=== PATIENT | female | born 1940 | race Caucasian/White ===

== ENCOUNTER 2017-02-18 16:07 | Inpatient (IN) | payer MEDICARE, BC ==
[~2017-02-18] VITALS: Ht 160 cm; Wt 112.5 kg
--- NOTE | 2017-02-18 16:20 | NUR ---
PT LOI FROM HOME TO ER BED 10 BEEN C/O DIZZINESS, DOUBLE VISION FOR 3-5 DAYS. GOWNED AND PLACED ON MONITOR. 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 PT DENIES PAIN. AWAITING MD LARA.
--- NOTE | 2017-02-18 16:30 | NUR ---
DR RUIZ AT BEDSIDE FOR EVAL.
--- NOTE | 2017-02-18 16:47 | NUR ---
IV LINE STARTED. BLOOD DRAWN AND SENT TO LAB.
[2017-02-18 16:56] LABS: BASOPHILS # (AUTO) 0.3 /CMM (0.0-0.2); BASOPHILS % (AUTO) 3.4 % (0.0-2.0); EOSINOPHILS # (AUTO) 0.6 /CMM (0.0-0.7); EOSINOPHILS % (AUTO) 7.6 % (0.0-6.0); HEMATOCRIT 32 % (33-45); HEMOGLOBIN 10.2 g/dL (11.5-14.8); LYMPHOCYTES # (AUTO) 1.7 /CMM (0.8-4.8); LYMPHOCYTES % (AUTO) 19.4 % (20.0-44.0); MEAN CORPUSCULAR HEMOGLOBIN 30 PG (26.0-33.0); MEAN CORPUSCULAR HGB CONC 32 g/dl (31.0-36.0); MEAN CORPUSCULAR VOLUME 95 fL (82-100); MONOCYTES # (AUTO) 0.7 /CMM (0.1-1.30); NEUTROPHILS # (AUTO) 5.2 /CMM (1.8-8.9); NEUTROPHILS % (AUTO) 61.6 % (43.0-81.0); PLATELET COUNT (AUTO) 194 /CMM (150-450); RDW COEFFICIENT OF VARIATION 15.3 (11.5-15.0); RED BLOOD CELL COUNT(AUTO) 3.35 MIL/uL (4.0-5.2); WHITE BLOOD COUNT (AUTO) 8.6 K/uL (4.3-11.0)
[2017-02-18] MEDS ORDERED: IV NS 0.9% 1,000 ML BAG IV ONE (17:00)
--- NOTE | 2017-02-18 17:00 | NUR ---
TEXTED DR. LEBLANC FOR MRI APPROVAL.
--- NOTE | 2017-02-18 17:05 | NUR ---
PT TO RADIOLOGY FOR HEAD CT SCAN VIA [facility].
[2017-02-18 17:06] LABS: CALCIUM, SERUM 8.3 mg/dL (8.5-10.1); CARBON DIOXIDE 29 mmol/L (21-32); CHLORIDE 101 mmol/L (98-107); CREATININE 4.1 mg/dL (0.6-1.3); GLUCOSE 144 mg/dL (74-106); POTASSIUM 4.3 mmol/L (3.5-5.1); SODIUM SERUM 137 mmol/L (136-145); UREA NITROGEN, BLOOD 44 mg/dL (7-18)
[2017-02-18 17:10] LABS: INR 0.95 (0.87-1.13); PROTHROMBIN TIME 9.9 SECS (9.5-12.7)
[2017-02-18 17:14] LABS: TROPONIN I < 0.017 ng/mL (0.00-0.056)
[2017-02-18] MEDS ORDERED: ONDA4TAB5 PO (17:42)
[2017-02-18] MEDS ORDERED: GLIP2.5T3 PO (17:42)
[2017-02-18] MEDS ORDERED: GABA-534 PO (17:42)
[2017-02-18] MEDS ORDERED: LEVO100T9 PO (17:42)
[2017-02-18] MEDS ORDERED: ALPR1TAB7 PO (17:42)
[2017-02-18] MEDS ORDERED: INDO50CA PO (17:42)
[2017-02-18] MEDS ORDERED: HYDR-552 PO (17:42)
[2017-02-18] MEDS ORDERED: LISI40TA4 PO (17:42)
[2017-02-18] MEDS ORDERED: BENZ200C45 PO (17:42)
[2017-02-18] MEDS ORDERED: HYDR50TA3 PO (17:42)
--- NOTE | 2017-02-18 18:15 | NUR ---
MRI APPROVED,PLACED A CALL TO [employer] INFORMATION CLERK.
--- NOTE | 2017-02-18 18:22 | NUR ---
ETA FOR MOLDED CANDLES WICKER 7.30PM.
--- NOTE | 2017-02-18 18:50 | NUR ---
DR RUIZ ON THE PHONE WITH DR PATEL.
[2017-02-18 19:19] LABS: APPEARANCE,URINE Clear (CLEAR); BILIRUBIN,URINE Negative (NEGATIVE); BLOOD, URINE Negative Ery/uL (NEGATIVE); COLOR,URINE Yellow (YELLOW); KETONES,URINE Negative (NEGATIVE); LEUKOCYTE ESTERASE ,URINE Negative (NEGATIVE); NITRITE, URINE Negative (NEGATIVE); PH,URINE 5.5 (5.0-8.0); PROTEIN,URINE Negative (NEGATIVE); UGLUCOSE Negative (NEGATIVE); UROBILINOGEN,URINE 0.2 EU/dL (0.2)
[2017-02-18] MEDS ORDERED: Z GUARD REMEDY 2 OZ OINT TP PRN (19:30)
[2017-02-18] MEDS ORDERED: MECLIZINE HCL 12.5 MG TABLET PO PRN (19:30)
[2017-02-18] MEDS ORDERED: MAGNESIUM HYDROXIDE 30 ML UDC PO PRN (19:30)
[2017-02-18] MEDS ORDERED: ALBUTEROL HALF STRENGTH 1.25 MG/3 ML VIAL.NEB NEB PRN (19:30)
[2017-02-18] MEDS ORDERED: GABAPENTIN 300 MG CAPSULE PO SCH (19:30)
[2017-02-18] MEDS ORDERED: hydrALAZINE HCL 25 MG TABLET PO PRN (19:30)
[2017-02-18] MEDS ORDERED: MAG HYDROX/AL HYDROX/SIMETH 30 ML UDC PO PRN (19:30)
[2017-02-18] MEDS ORDERED: ALPRAZOLAM 1 MG TABLET PO PRN ×2 (19:30)
[2017-02-18] MEDS ORDERED: MORPHINE SULFATE INJ 2 MG/ML DISP.SYRIN IV PRN (19:30)
--- NOTE | 2017-02-18 19:34 | NUR ---
PT WHEELLED TO RADIOLOGY FOR BRAIN MRI VIA WHEELCHAIR.
[2017-02-18 20:00] VITALS: BP 106/53
[2017-02-18] MEDS ORDERED: LORAZEPAM INJ 2 MG/ML VIAL ONE (20:15)
--- NOTE | 2017-02-18 20:15 | NUR ---
REPORT GIVEN TO ROSALIA. PT AWAITING TRANSFER TO FLOOR.
[2017-02-18 20:30] VITALS: BP 106/53
[2017-02-18] MEDS ORDERED: LORAZEPAM INJ 2 MG/ML VIAL IV PRN (20:30)
[2017-02-18] MEDS: IV NS 0.9% 1,000 ML IV PRN (20:52)
--- NOTE | 2017-02-18 21:15 | NUR ---
RN NOTES ADMITTED 76 Y/O FEMALE AOX3 CAME FROM ER VIA WEELCHAIR. STAND AND TRANSFER HERSELF TO THE BED WITH SUPERVISION AND STANDBY ASSIST. COOPERATIVE AND VERY CONCERNED REGARDING HER HEALTH DUE TO DIZZINESS. PER PT SHE FELT DIZZY AND IT GET WORST FOR 3 DAYS NOTED IN ER WITH HYPOTENSION SBP 80'S AND DIAGNOSED WITH ACUTE RENAL FAILURE. WITH HX. OF HTN, DM, HYPOTHYROIDISM AND LEFT CATARACT. NKA. TELE MONITOR PLACED REVEALS SR HR 68. IV SITE ON LEFT WRIST G 20 AND STARTED IV NS @ 75 CC/HR INTACT AND PATENT. FAMILY AT BEDSIDE. INFORMED ABOUT THE PLAN OF CARE, PT VERBALIZED UNDERSTANDING. SKIN ASSESSMENT DONE. INTACT. CALL LIGHT KEPT WITHIN EASY REACH. INSTRUCTION PROVIDED. DANYELLE WILLIAMSON (DAUGHTER) #[phone] AND SON IN LAW # [phone] GIVEN AND WILL BE CONTACT FOR ANY SIGNIFICANT ISSUES. KEPT CLEAN AND DRY WILL CONTINUE TO MONITOR.
[2017-02-18 21:51] LABS: BILIRUBIN,DIRECT 0.1 mg/dL (0.0-0.2); BILIRUBIN,TOTAL 0.4 mg/dL (0.2-1.0)
--- NOTE | 2017-02-18 22:00 | NUR ---
RN NOTES CALLED AND INFORMED DR. DERAS REGARDING PT REQUESTED TO INSERT PARKS CATH DUE TO HER DIZZINESS THAT SHE CAN'T MOVE TO MUCH DUE TO EPISODE OF DIZZINESS.
[2017-02-19] VITALS (8 sets, daily range): BP systolic 89–146; BP diastolic 38–69
[2017-02-19 06:52] LABS: BASOPHILS % (AUTO) 0.2 % (0.0-2.0); EOSINOPHILS # (AUTO) 0.5 /CMM (0.0-0.7); EOSINOPHILS % (AUTO) 6.1 % (0.0-6.0); HEMATOCRIT 33 % (33-45); HEMOGLOBIN 10.9 g/dL (11.5-14.8); LYMPHOCYTES # (AUTO) 1.2 /CMM (0.8-4.8); LYMPHOCYTES % (AUTO) 13.8 % (20.0-44.0); MEAN CORPUSCULAR HEMOGLOBIN 31 PG (26.0-33.0); MEAN CORPUSCULAR HGB CONC 33 g/dl (31.0-36.0); MEAN CORPUSCULAR VOLUME 94 fL (82-100); MONOCYTES # (AUTO) 0.4 /CMM (0.1-1.30); MONOCYTES % (AUTO) 5.1 % (2.0-12.0); NEUTROPHILS # (AUTO) 6.5 /CMM (1.8-8.9); NEUTROPHILS % (AUTO) 74.8 % (43.0-81.0); PLATELET COUNT (AUTO) 162 /CMM (150-450); RDW COEFFICIENT OF VARIATION 15.5 (11.5-15.0); RED BLOOD CELL COUNT(AUTO) 3.52 MIL/uL (4.0-5.2); WHITE BLOOD COUNT (AUTO) 8.7 K/uL (4.3-11.0)
[2017-02-19 07:04] LABS: CHOLESTEROL 155 mg/dL (<200); HDL CHOLESTEROL 41 mg/dL (40-60); LDL 91 mg/dL (0-99); TRIGLYCERIDES 226 mg/dL (30-150)
--- NOTE | 2017-02-19 07:14 | NUR ---
RN NOTES PT ASLEEP WELL ON BED. NO ACUTE RESP DISTRESS, PER PT. SHE IS CONGESTED AUSCULTATE PT. BILATERAL BREATH SOUND CLEAR. SHOWS NASAL CONGESTION. O2 2LPM VIA NC PLACED PRN TO HELP BREATH WELL. DENIED ANY DIZZINESS AT THIS TIME. F/C DRAINED WELL WITH YELLOW COLOR URINE VIA GRAVITY. IV SITE ON LEFT WRIST G 20 INTACT A AND PATENT WITH ONGOING NS @ 75 CC/HR. KEPT PT CLEAN AND DRY AND COMFORTABLE IN BED. WILL ENDORSED CONTINUITY OF CARE TO AM NURSE.
[2017-02-19 07:22] LABS: CALCIUM, SERUM 8.2 mg/dL (8.5-10.1); CARBON DIOXIDE 28 mmol/L (21-32); CHLORIDE 103 mmol/L (98-107); CREATININE 3.3 mg/dL (0.6-1.3); GLUCOSE 114 mg/dL (74-106); MAGNESIUM 2.1 mg/dL (1.8-2.4); PHOSPHORUS 4.5 mg/dL (2.5-4.9); POTASSIUM 4.6 mmol/L (3.5-5.1); SODIUM SERUM 140 mmol/L (136-145); UREA NITROGEN, BLOOD 43 mg/dL (7-18)
--- NOTE | 2017-02-19 08:00 | NUR ---
RN NOTES PT CO LOW BP, 100/44 MMHG. WILL RECHECK LATER AGAIN.
[2017-02-19] MEDS: PANTOPRAZOLE 40 MG TABLET.DR PO SCH (09:05)
[2017-02-19] MEDS: LEVOTHYROXINE SODIUM 100 MCG TABLET PO SCH (09:05)
[2017-02-19] MEDS: IV NS 0.9% 1,000 ML IV PRN (10:17)
[2017-02-19] MEDS: GABAPENTIN 300 MG CAPSULE PO SCH ×2 (13:17→18:28)
--- NOTE | 2017-02-19 14:00 | NUR ---
RN NOTE PARKS CATHETER REMOVED PER DR PAGE'S REQUEST.
[2017-02-19 14:29] LABS: APPEARANCE,URINE CLEAR (CLEAR); BILIRUBIN,URINE NEGATIVE (NEGATIVE); BLOOD, URINE 3+ Ery/uL (NEGATIVE); COLOR,URINE YELLOW (YELLOW); KETONES,URINE NEGATIVE (NEGATIVE); LEUKOCYTE ESTERASE ,URINE NEGATIVE (NEGATIVE); NITRITE, URINE NEGATIVE (NEGATIVE); PH,URINE 5.5 (5.0-8.0); PROTEIN,URINE TRACE mg/dl (NEGATIVE); UGLUCOSE NEGATIVE (NEGATIVE); UROBILINOGEN,URINE 0.2 EU/dL (0.2)
[2017-02-19 14:43] LABS: BACTERIA,URINE None seen /HPF (None Seen); RBC,URINE 21-50 /HPF (0-2); SQUAMOUS EPITHELIAL CELL,UR Few /HPF (None Seen); WBC,URINE 0-2 /HPF (0-3)
[2017-02-19 14:56] LABS: CREATININE, URINE 63.6 MG/DL (30.0-125.0)
[2017-02-19 15:15] LABS: EOSINOPHIL,URINE None Seen
[2017-02-19] MEDS: HYDROCODONE/APAP 5/325MG 1 EACH TABLET PO PRN ×2 (18:30→22:29)
[2017-02-19] MEDS: ONDANSETRON HCL/PF 4 MG/2 ML VIAL IVP PRN ×2 (18:30→22:29)
--- NOTE | 2017-02-19 20:00 | NUR ---
RN INITIAL NOTE; PT ON THE BED RESTING WITHOUT ANY DISTRESS . PT IS A/O X 3 , BREATHING EVEN AND UNLABORED ON 2 LPM O2 VIA NC, TELE MONITOR SHOWING SR 82 AT THIS TIME . L WRIST PERIPHERAL IV 20 G INTACT AND PATENT WITH CONTINUE NS @ 75 ML/HR . VERBALIZED PAIN WITHIN TOLERABLE LEVEL AT THIS TIME . PT IS CONTINENT TO BOWEL/BLADDER HABIT . ABLE TO GO TO RESTROOM , WILL ASSIST NEEDED. BED IN THE LOWEST/LOCKED POSITION. SAFETY MEASURES APPLIED . CALL LIGHT WITHIN REACH . WILL CONTINUE TO MONITOR .
--- NOTE | 2017-02-19 22:35 | NUR ---
RN NOTE; PRN NORCO 5/325 PO AND ZOFRAN 4 MG IV GIVEN FOR HIP PAIN AND C/O NAUSEA . TOLERATED WELL AT THIS TIME , WILL REASSESS.
[2017-02-20] VITALS (7 sets, daily range): BP systolic 128–180; BP diastolic 42–67
[2017-02-20] MEDS: ACETAMINOPHEN 325 MG TABLET PO PRN (04:19)
--- NOTE | 2017-02-20 04:20 | NUR ---
RN NOTE; PRN TYLENOL 650 MG PO GIVEN FOR MILD PAIN, WILL REASSESS.
[2017-02-20] MEDS: IV NS 0.9% 1,000 ML IV PRN (04:27)
--- NOTE | 2017-02-20 07:00 | NUR ---
RN EOS NOTE; PT REMAINED STABLE DURING THE SHIFT, NO ANY DISTRESS NOTED . REMAINED SR HR 80s ON TELE MONITOR . PAIN IS MANAGED AT THIS TIME . ASSISTED TO RESTROOM NEEDED, ABLE TO AMBULATE . ALL NEEDS ATTENDED PROMPTLY. WILL ENDORSE TO NEXT SHIFT RN FOR CONTINUITY OF CARE.
[2017-02-20 07:10] LABS: ALANINE AMINOTRANSFERASE 16 U/L (12-78); ALBUMIN 3.2 g/dL (3.4-5.0); ALKALINE PHOSPHATASE 88 U/L (46-116); ASPARTATE AMINOTRANSFERASE 19 U/L (15-37); BILIRUBIN,TOTAL 0.9 mg/dL (0.2-1.0); CALCIUM, SERUM 8.5 mg/dL (8.5-10.1); CARBON DIOXIDE 28 mmol/L (21-32); CHLORIDE 104 mmol/L (98-107); CREATININE 1.3 mg/dL (0.6-1.3); GLUCOSE 156 mg/dL (74-106); MAGNESIUM 1.6 mg/dL (1.8-2.4); PHOSPHORUS 2.5 mg/dL (2.5-4.9); POTASSIUM 4.4 mmol/L (3.5-5.1); SODIUM SERUM 139 mmol/L (136-145); TOTAL PROTEIN, SERUM 6.6 g/dL (6.4-8.2); UREA NITROGEN, BLOOD 25 mg/dL (7-18)
[2017-02-20 07:11] LABS: CREATINE KINASE, TOTAL 80 U/L (26-192)
--- NOTE | 2017-02-20 07:15 | NUR ---
RN INITIAL NOTES PT IS IN BED A/O X4, ABLE TO MAKE NEEDS KNOW, ON NC O2 ON 2LPM, SATURATING AT 96%, ON TELE MONITOR SINUS 84. BRP, WALKS WITH WALKER, ASSISTED WITH ADL, IV SITE IN L WRIST IS FLUSHED AND PATENT. SIDE RAILS UP, BED LOCKED IN LOWEST POSITION, CALL LIGHT WITHIN REACH.
[2017-02-20] MEDS: ONDANSETRON HCL/PF 4 MG/2 ML VIAL IVP PRN ×2 (08:50→20:48)
[2017-02-20] MEDS: GABAPENTIN 300 MG CAPSULE PO SCH ×3 (08:51→17:59)
[2017-02-20] MEDS: LEVOTHYROXINE SODIUM 100 MCG TABLET PO SCH (08:51)
[2017-02-20] MEDS: HYDROCODONE/APAP 5/325MG 1 EACH TABLET PO PRN (08:51)
[2017-02-20] MEDS: PANTOPRAZOLE 40 MG TABLET.DR PO SCH (08:52)
[2017-02-20] MEDS ORDERED: hydrALAZINE HCL 10 MG TABLET PO PRN (09:00)
--- NOTE | 2017-02-20 09:34 | NUR ---
RN NOTES PTS BP NOTED 180/65, HYDRALAZINE 10MG PRN GIVEN ORDERED. WILL RE CHECK BP AND WILL CONTINUE TO MONITOR.
--- NOTE | 2017-02-20 10:14 | NUR ---
RN NOTES MAG LEVEL OF 1.6 DR KAYLEE HUFF, ORDERED 2 BAGS OF MAG REPLACEMENT.
[2017-02-20] MEDS: Magnesium 1GM/D5W 100ML PREMIX 1 G in PREMIX 1 EA IV SCH ×2 (10:30→11:52)
[2017-02-20] MEDS ORDERED: Magnesium 1GM/D5W 100ML PREMIX 200 ML IV ONE (11:31)
[2017-02-20 12:42] LABS: APPEARANCE,URINE CLEAR (CLEAR); BILIRUBIN,URINE NEGATIVE (NEGATIVE); BLOOD, URINE TRACE-INTA Ery/uL (NEGATIVE); COLOR,URINE YELLOW (YELLOW); KETONES,URINE NEGATIVE (NEGATIVE); LEUKOCYTE ESTERASE ,URINE TRACE (NEGATIVE); NITRITE, URINE NEGATIVE (NEGATIVE); PROTEIN,URINE NEGATIVE (NEGATIVE); UGLUCOSE NEGATIVE (NEGATIVE); UROBILINOGEN,URINE 0.2 EU/dL (0.2)
[2017-02-20 12:48] LABS: BACTERIA,URINE None seen /HPF (None Seen); SQUAMOUS EPITHELIAL CELL,UR Few /HPF (None Seen)
[2017-02-20 13:19] LABS: CREATININE, URINE 36.4 MG/DL (30.0-125.0); URINE TOTAL PROTEIN 6.4 mg/dL (0-11.9)
[2017-02-20 13:20] LABS: EOSINOPHIL,URINE None Seen
--- NOTE | 2017-02-20 13:47 | NUR ---
DR PATEL SEEN THE PT, WOULD LIKE TO GET THE PATIENT USE TO TAKING ULTRAM. MAG WAS REPLACED AND IVF DISCONTINUED.
--- NOTE | 2017-02-20 18:43 | NUR ---
RN CLOSING NOTES PT IS ON ROOM AIR, AND SATURATING WELL. NO COMPLAINS OF DOUBLE VISION OR DIZZINESS, SINUS RHYTHM ON TELE MONITOR . BLOOD PRESSURE MONITORED CLOSELY, PT HAS A PRN ORDER OF HYDRALAZINE SBP OF >160. EDUCATED PT REGARDING PAIN MGMT AND TRY TO AVOID NSAID, PT MADE AWARE OF PRN ULTRAM, BUT SHE WOULD LIKE TO HAVE IT AT BEDTIME IF SHE NEEDS. PT AMBULATED WITH PHYSICAL THERAPIST AND TOLERATED IT WELL. ALL MEDS GIVEN ORDERED, PER DR PAGE RESUME LISINOPRIL IN AM. WILL ENDORSE TO PM NURSE FOR CONTINUATION OF CARE
--- NOTE | 2017-02-20 19:30 | NUR ---
RN NOTES RECEIVED PATIENT IN BED ASLEE[, AROUSABLE. AO X 3, ABLE TO MAKE NEEDS KNOWN. NO ACUTE DISTRESS NOTED. DENIES ANY PAIN AT THIS TIME. IV SITE PATENT, INTACT; FLUSHED. ON LOW BED WITH BILATERAL UPPER SIDE RAILS UP. SAFETY REMINDERS GIVEN. CALL LIGHT WITHIN EASY REACH. WILL CONTINUE TO MONITOR. Addendum: 02/20/17 at 3065 by LILIA ESCOBEDO RN TELE READING HR 77
[2017-02-20] MEDS: TRAMADOL HCL 50 MG TABLET PO PRN (20:45)
--- NOTE | 2017-02-20 22:15 | NUR ---
RN NOTES REPORT GIVEN TO NURSE CUENCA FOR CONTINUITY OF CARE.
[2017-02-21] VITALS: BP 108/44
[2017-02-21 04:00] VITALS: BP 135/50
[2017-02-21] MEDS: ACETAMINOPHEN 325 MG TABLET PO PRN (04:56)
[2017-02-21 07:16] LABS: BASOPHILS % (AUTO) 0.3 % (0.0-2.0); EOSINOPHILS # (AUTO) 0.4 /CMM (0.0-0.7); EOSINOPHILS % (AUTO) 5.2 % (0.0-6.0); HEMATOCRIT 30 % (33-45); LYMPHOCYTES # (AUTO) 1.2 /CMM (0.8-4.8); LYMPHOCYTES % (AUTO) 14.5 % (20.0-44.0); MEAN CORPUSCULAR HEMOGLOBIN 31 PG (26.0-33.0); MEAN CORPUSCULAR HGB CONC 33 g/dl (31.0-36.0); MEAN CORPUSCULAR VOLUME 94 fL (82-100); MONOCYTES # (AUTO) 0.6 /CMM (0.1-1.30); MONOCYTES % (AUTO) 7.6 % (2.0-12.0); NEUTROPHILS % (AUTO) 72.4 % (43.0-81.0); PLATELET COUNT (AUTO) 181 /CMM (150-450); RED BLOOD CELL COUNT(AUTO) 3.22 MIL/uL (4.0-5.2); WHITE BLOOD COUNT (AUTO) 8.3 K/uL (4.3-11.0)
--- NOTE | 2017-02-21 07:20 | NUR ---
RN INITIAL NOTES PT IS SITTING UP IN CHAIR, ROOM AIR, SATURATING AT 96%, ON TELE MONITOR SINUS 86.. BRP, ASSISTED WITH ADL, IV SITE IN L WRIST IS FLUSHED AND PATENT, SALINE LOCK, NO COMPLAINTS OF PAIN, WILL CONTINUE TO MONITOR. SIDE RAILS UP, BED LOCKED IN LOWEST POSITION, CALL LIGHT WITHIN REACH.
[2017-02-21 07:42] LABS: CALCIUM, SERUM 8.4 mg/dL (8.5-10.1); CARBON DIOXIDE 30 mmol/L (21-32); CHLORIDE 102 mmol/L (98-107); CREATININE 0.9 mg/dL (0.6-1.3); GLUCOSE 152 mg/dL (74-106); MAGNESIUM 1.3 mg/dL (1.8-2.4); POTASSIUM 4.3 mmol/L (3.5-5.1); SODIUM SERUM 139 mmol/L (136-145); UREA NITROGEN, BLOOD 13 mg/dL (7-18)
[2017-02-21] MEDS: LEVOTHYROXINE SODIUM 100 MCG TABLET PO SCH (07:55)
[2017-02-21] MEDS: PANTOPRAZOLE 40 MG TABLET.DR PO SCH (07:55)
[2017-02-21 08:00] VITALS: BP 120/45
[2017-02-21] MEDS: TRAMADOL HCL 50 MG TABLET PO PRN (08:00)
[2017-02-21] MEDS: GABAPENTIN 300 MG CAPSULE PO SCH ×2 (09:00→12:57)
[2017-02-21] MEDS ORDERED: LISINOPRIL (20MG) 20 MG TABLET PO SCH (09:00)
[2017-02-21] MEDS: ONDANSETRON HCL/PF 4 MG/2 ML VIAL IVP PRN (10:27)
[2017-02-21] MEDS: Magnesium 1GM/D5W 100ML PREMIX 100 ML IV SCH ×4 (10:36→14:03)
[2017-02-21 12:00] VITALS: BP 121/48
[2017-02-21 12:23] LABS: *SPE A/G RATIO 1.2 (0.7-1.7); *SPE ALBUMIN 3.3 g/dL (2.9-4.4); *SPE ALPHA-1-GLOBULIN 0.3 g/dL (0.0-0.4); *SPE BETA GLOBULIN 0.8 g/dL (0.7-1.3); *SPE GLOBULIN, TOTAL 2.7 g/dL (2.2-3.9); *SPE M-SPIKE Not Observed g/dL (Not Observed); *SPEGAMMA GLOBULIN 0.6 g/dL (0.4-1.8); PTH, INTACT 78 pg/mL (15-65)
[2017-02-21 16:00] VITALS: BP 105/32
--- NOTE | 2017-02-21 17:30 | NUR ---
RN CLOSING NOTES PT WAS CLEARED FOR DISCHARGE BY DR PATEL, PT IS IN STABLE CONDITION, NO ACUTE DISTRESS NOTED. ALL MEDS GIVEN ORDERED, IV DISCONTINUED, TELE MONITOR REMOVED, NO SKIN ISSUES. EDUCATED PT ABOUT HER DIAGNOSIS, ADVISE THE PT TO F/U WITH PCP. TRANSFERRED USING WHEELCHAIR TO PT'S DAUGHTER [employer]IVATE TRANSPORTATION SAFELY.
[2017-02-24 12:10] LABS: CALCITRIOL VIT D,1, 25 DIHYDRO 24.2 pg/mL (19.9-79.3)
== END 2017-02-21 19:00 | disposition home health service (06) | DRG 683 ==
LOC: ER 16:08 → TELE-TD 18:30 → TELE1 02-20 03:59
PROVIDERS: ADMIT Internal Medicine; ATTEND Internal Medicine
DX: N17.0 Acute kidney failure with tubular necrosis (principal); I50.32 Chronic diastolic (congestive) heart failure; Z68.41 Body mass index [BMI] 40.0-44.9, adult; E44.0 Moderate protein-calorie malnutrition; D63.8 Anemia in other chronic diseases classified elsewhere; E11.9 Type 2 diabetes mellitus without complications; E03.9 Hypothyroidism, unspecified; E66.9 Obesity, unspecified; E78.5 Hyperlipidemia, unspecified; F41.9 Anxiety disorder, unspecified; I11.0 Hypertensive heart disease with heart failure; Z79.84 Long term (current) use of oral hypoglycemic drugs; I95.9 Hypotension, unspecified; E86.0 Dehydration; H81.10 Benign paroxysmal vertigo, unspecified ear; I25.10 Atherosclerotic heart disease of native coronary artery without angina pectoris; M54.30 Sciatica, unspecified side; T39.395A Adverse effect of other nonsteroidal anti-inflammatory drugs [NSAID], initial encounter; Y92.009 Unspecified place in unspecified non-institutional (private) residence as the place of occurrence of the external cause; K21.9 Gastro-esophageal reflux disease without esophagitis; Z79.899 Other long term (current) drug therapy; H81.49 Vertigo of central origin, unspecified ear
CPT/HCPCS: 36415; 70450-TC; 71010-TC; 72131-TC; 76770-TC; 80048-TC; 80053-TC; 80061-TC; 80305; 81000-TC; 82247-TC; 82248-TC; 82306; 82550-TC; 82570-TC; 82652; 83605-TC; 83735-TC; 83970; 84100-TC; 84155; 84155-TC; 84165; 84300-TC; 84443-TC; 84484-TC; 85025-TC; 85730-TC; 87040-TC; 87081-TC; 87086-TC; 93307-TC; 94799-TC; 97001-TC; 97110-TC; 97116-TC; 97530-TC; A4216; A4606; J2060; J2405; J3475; J7030; J7060; J8597; Z7610